=== PATIENT | female | born 1995 | race Caucasian/White ===

== ENCOUNTER 2017-11-18 23:20 | Inpatient (IN) | payer BC, MEDICAID ==
[2017-11-18] MEDS ORDERED: Sodium Chloride 0.9% 10 ML Syringe FLUSH PRN (23:43)
[2017-11-18] MEDS ORDERED: Ondansetron 4 MG Tab.DIS PO PRN (23:43)
[2017-11-18] MEDS ORDERED: Acetaminophen 325 MG Tab PO PRN (23:43)
[2017-11-18] MEDS ORDERED: fentaNYL 100 MCG/2 ML SDV IVPUSH PRN (23:43)
[2017-11-18] MEDS ORDERED: OXYTOCIN IV SCH (23:45)
[2017-11-18] MEDS ORDERED: SODIUM CHLORIDE IV SCH (23:45)
[2017-11-18] MEDS ORDERED: Lactated Ringers 1,000 ML IV ONE (23:46)
[2017-11-18] MEDS ORDERED: ePHEDrine 50 MG/ML SDV IVPUSH ONE (23:46)
--- NOTE | 2017-11-18 23:54 | PCM.LDHP ---
L&D History of Present Illness - General Date of Service: 11/18/17 (active labor) Admit Problem/Dx: Patient Status Order with Admit Dx/Problem 11/18/17 23:44 Patient Status [ADT] Routine Admission Diagnosis/Problem Admission Diagnosis/Problem Source of Information: Patient History Limitations: Reports: No Limitations - History of Present Illness Introduction:: This 22 yr old who is 39 1/7 presented in active labor. CE 90/0 GBS neg ABO O pos, HIV neg Timing/Duration: Reports: minutes: (2) Location, : Reports: Lower back (2) Quality: Reports: Pressure (2) Severity: Moderate Improves with: Reports: None Worsens with: Reports: None - Related Data Allergies/Adverse Reactions: Allergies Allergy/AdvReac Type Severity Reaction Status Date / Time prochlorperazine Allergy Anaphylactic Verified 02/05/16 02:59 [From Compazine] Shock Home Medications: Home Meds Vit W-Ca,Fe,FA(<1 mg) [ Vitamins] 1 tab PO DAILY 02/05/16 [ History] Past Medical History Genitourinary History: Reports: Other (See Below) Other Genitourinary History: surgery on L ureter tube [employer] History: Reports: : 3 Para: 2 LMP (Approximate): (CASS 11/25/17) - Past Surgical History Other Female Surgeries/Procedures: pyeloplasty 2008 and 12 years ago; cystoscopy 2013 Social & Family History - Caffeine Use Caffeine Use: Reports: Soda H&P Review of Systems - Review of Systems: Review Of Systems: See Below General: Reports: No Symptoms HEENT: Reports: No Symptoms Pulmonary: Reports: No Symptoms Cardiovascular: Reports: No Symptoms Gastrointestinal: Reports: No Symptoms Genitourinary: Reports: No Symptoms Musculoskeletal: Reports: No Symptoms Skin: Reports: No Symptoms Psychiatric: Reports: No Symptoms Neurological: Reports: No Symptoms Hematologic/Lymphatic: Reports: No Symptoms Immunologic: Reports: No Symptoms L&D Exam - Exam Exam: See Below - OB Specific Contraction Intensity: Moderate to Strong Movement: Active Heart Tones: Present Heart Rate (FHR) Variability: Moderate (6-25 bmp) Presentation: Vertex Estimated Weight: 7 pounds - Abarca Score Abarca Score Cervix Position: Midposition Abarca Score Consistency: Soft Abarca Score Effacement: >80% Abarca Score Dilation: > 5 cm Abarca Score Infant's Station: -1 ,0 Abarca Score Total: 11 - Exam General: Alert, Oriented HEENT: PERRLA, Mucosa Moist & [place], Pupils Equal Neck: Supple Lungs: Clear to Auscultation, Normal Respiratory Effort Cardiovascular: Regular Rate, Regular Rhythm GI/Abdominal Exam: Normal Bowel Sounds, Soft, Non-Tender Rectal Exam: Normal Exam Genitourinary: Cervical dilitation, Cervical fluid, Enlarged uterus Back Exam: Normal Inspection Extremities: Normal Inspection, No Pedal Edema Skin: Warm, Dry Neurological: Cranial Nerves Intact Psychiatric: Alert, Normal Affect, Normal Mood - Problem List (1) SNOMED Code(s): 21080441 ICD Code: Z34.90 - ENCNTR FOR SUPRVSN OF NORMAL , UNSP, UNSP TRIMESTER Status: Acute Current Visit: Yes Qualifiers: Weeks of gestation: 39 weeks Qualified Code(s): Z3A.39 - 39 weeks gestation of (2) Active labor at term SNOMED Code(s): 05909924 ICD Code: [id number] - Status: Acute Current Visit: Yes Problem List Initiated/Reviewed/Updated: Yes Orders Last 24hrs: Active Orders 24 hr Category Date Time Status Patient Status [ADT] Routine ADT 11/18/17 23:44 Ordered Antiembolic Devices [RC] .Routine Care 11/18/17 23:45 Ordered Bedrest Bathroom Privileges [RC] ASDIRECTED Care 11/18/17 23:43 Ordered Communication Order [RC] ASDIRECTED Care 11/18/17 23:44 Ordered Heart Tones [RC] PER UNIT ROUTINE Care 11/18/17 23:44 Ordered Insert Urinary Catheter [OM.PC] ASDIRECTED Care 11/18/17 23:46 Ordered Local Anesthetic Infusion Pump [RC] ASDIRECTED Care 11/18/17 23:46 Ordered May Shower [RC] ASDIRECTED Care 11/18/17 23:43 Ordered Notify Provider Vital Signs [RC] PRN Care 11/18/17 23:43 Ordered Notify Provider [RC] PRN Care 11/18/17 23:44 Ordered OB Check [OM.PC] Click to Edit Care 11/18/17 23:26 Ordered PCEA Epidural [RC] ASDIRECTED Care 11/18/17 23:46 Ordered PCEA Epidural [RC] ASDIRECTED Care 11/18/17 23:46 Ordered Up ad Raysa [RC] ASDIRECTED Care 11/18/17 23:43 Ordered Urinary Catheter Assessment [RC] ASDIRECTED Care 11/18/17 23:46 Ordered VTE/DVT Education [RC] Click to Edit Care 11/18/17 23:45 Ordered Vital Signs [RC] PER UNIT ROUTINE Care 11/18/17 23:44 Ordered Regular Diet [DIET] Diet 11/19/17 Breakfast Ordered CBC WITH AUTO DIFF [HEME] Routine Lab 11/18/17 23:32 Ordered UA W/MICROSCOPIC [URIN] Routine Lab 11/18/17 23:27 Ordered Acetaminophen [Tylenol] Med 11/18/17 23:43 Ordered 650 mg PO Q4H PRN Lactated Ringers [Ringers, Lactated] 1,000 ml Med 11/18/17 23:46 Ordered IV .BOLUS Ondansetron [Zofran ODT] Med 11/18/17 23:43 Ordered 4 mg PO Q4H PRN Oxytocin/Normal Saline [Pitocin in NS 20 Units/1,000 ML Med 11/18/17 23:45 Ordered ] 1,000 ml IV TITRATE Sodium Chloride 0.9% [Saline Flush] Med 11/18/17 23:43 Ordered 10 ml FLUSH ASDIRECTED PRN ePHEDrine [ePHEDrine Sulfate] Med 11/18/17 23:46 Once 5 mg IVPUSH ONETIME ONE fentaNYL [Sublimaze] Med 11/18/17 23:43 Ordered 100 mcg IVPUSH Q1H PRN DVT/VTE Prophylaxis Reflex [OM.PC] Routine Oth 11/18/17 23:43 Ordered Epidural Catheter Management [OM.PC] Urgent Oth 11/18/17 23:46 Ordered Saline Lock Insert [OM.PC] Routine Oth 11/18/17 23:44 Ordered Resuscitation Status Routine Resus Stat 11/18/17 23:43 Ordered Medication Orders Acetaminophen (Tylenol) 650 mg PO Q4H PRN PRN Reason: Pain (Mild 1-3) and fever Ephedrine Sulfate (Ephedrine Sulfate) 5 mg IVPUSH ONETIME ONE Stop: 11/18/17 23:47 Fentanyl (Sublimaze) 100 mcg IVPUSH Q1H PRN PRN Reason: Pain (moderate 4-6) Lactated Ringer's (Ringers, Lactated) 1,000 mls @ 999 mls/hr IV .BOLUS ONE Stop: 11/19/17 00:46 Oxytocin/Sodium Chloride (Pitocin In Ns 20 Units/1,000 Ml) 1,000 mls @ 6 mls/ hr IV TITRATE JEREMY; Protocol Ondansetron HCl (Zofran Odt) 4 mg PO Q4H PRN PRN Reason: Nausea/Vomiting Sodium Chloride (Saline Flush) 10 ml FLUSH ASDIRECTED PRN PRN Reason: Keep Vein Open Assessment/Plan Comment:: 11/18/17 22 yr old 39 05/25 active labor AROM clear fluid Anticipate a vaginal delivery
[2017-11-19] MEDS ORDERED: Ropivacaine HCl/PF 200 ML ONE (00:21)
[2017-11-19] MEDS ORDERED: Lanolin 100% Cream 40 GM Tube TOP PRN (01:17)
--- NOTE | 2017-11-19 01:19 | ANES ---
DATE OF SERVICE: 11/19/2017 LABOR EPIDURAL NOTE INDICATIONS: Miladis is a 22-year-old female patient that I was called for to do a labor epidural. This is Miladis's 3rd baby. Has had epidurals in the past. The risks and benefits reviewed with the patient and . The patient understands the risks and benefits and wishes to proceed with labor epidural today. Brief history and physical was obtained prior to the epidural. Normal . No abnormal bleeding issues. Platelet count was approximately 170. DESCRIPTION OF PROCEDURE: Miladis was then sat at the edge of the bed. Betadine prep to the lumbar region was done. Sterile drape was placed. 1% lidocaine skin wheal and deep was done. A 17-gauge Tuohy needle was inserted at approximately the L3-4 spot. Loss of resistance was achieved at approximately 4 cm. Negative CSF, negative paresthesia, and negative heme were noted at that time. Catheter was then easily placed. Tuohy needle was withdrawn. Catheter was pulled back to approximately 10 cm and secured at 10 cm. A 3 mL test dose was done. The patient was then laid supine with slight left uterine displacement. Several minutes after the test dose, the patient showed no signs of local anesthetic toxicity or intravascular injection of local or subarachnoid injection of local. I then proceeded to give 12 mL of 0.2% ropivacaine via the epidural. I then started her on a 0.2% ropivacaine drip at 12 mL an hour. The patient was having some relief prior to me leaving the room. Vital signs were stable. Please refer to the nurse's notes for the vital signs. The patient will be monitored closely. Mark Das CRNA /[id number]
[2017-11-19] MEDS ORDERED: Ibuprofen 200 MG Tab, 24 Tab Bulk Bottle PO PRN (01:21)
[2017-11-19] MEDS ORDERED: Acetaminophen 325 MG Tab, 50 Tab Bulk Bottle PO PRN ×2 (01:21→08:14)
--- NOTE | 2017-11-19 01:29 | PCM.DEL ---
L & D Note - General Info Date of Service: 11/19/17 (Delivery) Mother's Due Date: 11/25/17 - Delivery Note Labor: Spontaneous Delivery Outcome: Livebirth Infant Delivery Method: Spontaneous Vaginal Delivery-Single Infant Delivery Mode: Spontaneous Presentation: Vertex Nuchal Cord: None Anesthesia Type: Epidural Amniotic Fluid Description: Clear Episiotomy Type: None Laceration: None Placenta: Intact, Spontaneous Cord: 3 Vessels Estimated Blood Loss: 200 Resuscitation Needed: No [place]: Bulb Syringe, Stimulated, Warmed, [place] Used Provider: Alda Rashid Score 1 min: 8 Score 5 min: 9 Score 10 min: 9 Second Stage Interventions: Reports: Second Nurse Reviewed Heart Tones, Encouragement Given, Pushing Effectively, Pushing, Pulls Own Legs Back Delivery Comments (Free Text/Narrative):: 11/19/17 This 22 year old G3 now P3 who is 39 1/7 weeks gestation delivered via a viable female infant over an intact perineum at 0051 in MILI position. She was placed on mother's abdomen where she was dried and stimulated. She cried spontaneously. She was bulb suctioned. Apgars 8,9,9, all for color. Three vessel cord. The placenta was expressed spontaneously intact. No lacerations of the cervix, vagina, rectum or perineum. EBL 200 cc weight 7-5 Mother and baby to post and nursery in stable condition. - General Info Date of Service: 11/19/17 Admission Dx/Problem (Free Text): Patient Status Order with Admit Dx/Problem 11/18/17 23:44 Patient Status [ADT] Routine Admission Diagnosis/Problem Admission Diagnosis/Problem Functional Status: Reports: Pain Controlled - Review of Systems General: Reports: No Symptoms HEENT: Reports: No Symptoms Pulmonary: Reports: No Symptoms Cardiovascular: Reports: No Symptoms Gastrointestinal: Reports: No Symptoms Genitourinary: Reports: No Symptoms Musculoskeletal: Reports: No Symptoms Skin: Reports: No Symptoms Neurological: Reports: No Symptoms Psychiatric: Reports: No Symptoms - Patient Data Lab Results Last 24 Hours: Laboratory Results - last 24 hr 11/18/17 Range/Units 23:32 WBC 10.0 (4.5-11.0) K/uL RBC 4.06 (3.30-5.50) M/uL Hgb 12.5 (12.0-15.0) g/dL Hct 37.2 (36.0-48.0) % MCV 92 (80-98) fL MCH 31 (27-31) pg MCHC 34 (32-36) % Plt Count 179 (150-400) K/uL Neut % (Auto) 66 (36-66) % Lymph % (Auto) 24 (24-44) % [place] % (Auto) 10 H (2-6) % Eos % (Auto) 1 L (2-4) % Baso % (Auto) 0 (0-1) % Med Orders - Current: Current Medications Acetaminophen (Tylenol) 650 mg PO Q4H PRN PRN Reason: Pain (Mild 1-3) and fever Acetaminophen (Tylenol Bulk Bottle) 325 mg PO Q4H PRN PRN Reason: Pain Emollient Ointment (Lansinoh Hpa) 1 gm TOP ASDIRECTED PRN PRN Reason: Sore Nipples Fentanyl (Sublimaze) 100 mcg IVPUSH Q1H PRN PRN Reason: Pain (moderate 4-6) Oxytocin/Sodium Chloride (Pitocin In Ns 20 Units/1,000 Ml) 30 unit in 1,500 mls @ 6 mls/hr IV TITRATE JEREMY; Protocol Ibuprofen (Motrin Bulk Bottle) 600 mg PO Q6H PRN PRN Reason: Pain Ondansetron HCl (Zofran Odt) 4 mg PO Q4H PRN PRN Reason: Nausea/Vomiting Sodium Chloride (Saline Flush) 10 ml FLUSH ASDIRECTED PRN PRN Reason: Keep Vein Open Discontinued Medications Ephedrine Sulfate (Ephedrine Sulfate) 5 mg IVPUSH ONETIME ONE Stop: 11/18/17 23:47 Lactated Ringer's (Ringers, Lactated) 1,000 mls @ 999 mls/hr IV .BOLUS ONE Stop: 11/19/17 00:46 Last Admin: 11/18/17 23:45 Dose: 999 mls/hr Ropivacaine (Naropin 0.2%) Confirm Administered Dose 200 mls @ as directed .ROUTE .STK-MED ONE Stop: 11/19/17 00:22 - Exam General: Alert, Oriented HEENT: Pupils Equal, Pupils Reactive Neck: Supple Lungs: Clear to Auscultation, Normal Respiratory Effort Cardiovascular: Regular Rate, Regular Rhythm GI/Abdominal Exam: Soft (Female) Exam: Cervical Dilatation, Enlarged Uterus, Vaginal Bleeding Back Exam: Normal Inspection Extremities: Normal Inspection, Normal Range of Motion, Non-Tender, No Pedal Edema, Normal Capillary Refill Skin: Warm, Dry, Intact Neurological: No New Focal Deficit Psy/Mental Status: Alert, Normal Affect, Normal Mood - Problem List & Annotations (1) SNOMED Code(s): 40321561 Code(s): Z34.90 - ENCNTR FOR SUPRVSN OF NORMAL , UNSP, UNSP TRIMESTER Status: Acute Current Visit: Yes Qualifiers: Weeks of gestation: 39 weeks Qualified Code(s): Z3A.39 - 39 weeks gestation of (2) Active labor at term SNOMED Code(s): 98944891 Code(s): JSS6994 - Status: Acute Current Visit: Yes (3) Normal spontaneous vaginal delivery SNOMED Code(s): 21419628 Code(s): O80 - ENCOUNTER FOR FULL-TERM UNCOMPLICATED DELIVERY Status: Acute Current Visit: Yes - Problem List Review Problem List Initiated/Reviewed/Updated: Yes - My Orders Last 24 Hours: My Active Orders 11/18/17 23:26 OB Check [OM.PC] Click to Edit 11/18/17 23:27 UA W/MICROSCOPIC [URIN] Routine 11/18/17 23:43 Bedrest Bathroom Privileges [RC] ASDIRECTED May Shower [RC] ASDIRECTED Notify Provider Vital Signs [RC] PRN Up ad Raysa [RC] ASDIRECTED Acetaminophen [Tylenol] 650 mg PO Q4H PRN Ondansetron [Zofran ODT] 4 mg PO Q4H PRN Sodium Chloride 0.9% [Saline Flush] 10 ml FLUSH ASDIRECTED PRN fentaNYL [Sublimaze] 100 mcg IVPUSH Q1H PRN DVT/VTE Prophylaxis Reflex [OM.PC] Routine Resuscitation Status Routine 11/18/17 23:44 Communication Order [RC] ASDIRECTED Heart Tones [RC] PER UNIT ROUTINE Notify Provider [RC] PRN Vital Signs [RC] PER UNIT ROUTINE Saline Lock Insert [OM.PC] Routine 11/18/17 23:45 Antiembolic Devices [RC] .Routine VTE/DVT Education [RC] Click to Edit Oxytocin/Normal Saline [Pitocin in NS 20 Units/1,000 ML] 30 unit in 1,500 ml IV TITRATE 11/18/17 23:46 Insert Urinary Catheter [OM.PC] ASDIRECTED Local Anesthetic Infusion Pump [RC] ASDIRECTED PCEA Epidural [RC] ASDIRECTED PCEA Epidural [RC] ASDIRECTED Urinary Catheter Assessment [RC] ASDIRECTED Epidural Catheter Management [OM.PC] Urgent 11/19/17 01:17 Lanolin [Lansinoh HPA] 1 gm TOP ASDIRECTED PRN Assess Lochia [WOMSER] Per Unit Routine Assess Uterine Involution [WOMSER] Per Unit Routine 11/19/17 01:18 Patient Status [ADT] Routine Vital Signs [RC] PFP 11/19/17 01:19 Ice Therapy [OM.PC] Per Unit Routine Perineal Care [OM.PC] Per Unit Routine Peripheral IV Discontinue [OM.PC] Routine 11/19/17 01:21 Acetaminophen [Tylenol Bulk Bottle] 325 mg PO Q4H PRN Ibuprofen [Motrin Bulk Bottle] 600 mg PO Q6H PRN 11/19/17 05:11 CBC W/O DIFF,HEMOGRAM [HEME] AM 11/19/17 Breakfast Regular Diet [DIET] - Assessment Assessment:: 11/19/17 22 year old without complications GBS neg ABo O pos Rubella immune HIV neg - Plan Plan:: 11/18/17 22 yr old 39 1 active labor AROM clear fluid Anticipate a vaginal delivery 11/19/17 Routine cares support 24-48 hour stay.
--- NOTE | 2017-11-19 11:30 | PCM.PNPP ---
- General Info Date of Service: 11/19/17 Admission Dx/Problem (Free Text): Patient Status Order with Admit Dx/Problem 11/18/17 23:44 Patient Status [ADT] Routine Admission Diagnosis/Problem Admission Diagnosis/Problem Functional Status: Reports: Pain Controlled - Review of Systems General: Reports: No Symptoms HEENT: Reports: No Symptoms Pulmonary: Reports: No Symptoms Cardiovascular: Reports: No Symptoms Gastrointestinal: Reports: No Symptoms Genitourinary: Reports: No Symptoms Musculoskeletal: Reports: No Symptoms Skin: Reports: No Symptoms Neurological: Reports: No Symptoms Psychiatric: Reports: No Symptoms - General Info Date of Service: 11/19/17 - Patient Data Vital Signs - Most Recent: Last Vital Signs Temp 98.2 F 11/19/17 08:55 Pulse 76 11/19/17 08:39 Resp 16 11/19/17 08:39 BP 100/53 L 11/19/17 08:39 Pulse Ox 99 11/19/17 08:39 Weight - Most Recent: 124 lb I&O - Last 24 Hours: Intake & Output 11/18/17 11/19/17 11/19/17 22:59 06:59 14:59 Intake Total 1999 420 Balance 1999 420 Lab Results - Last 24 Hours: Laboratory Results - last 24 hr 11/18/17 11/19/17 Range/Units 23:32 05:44 WBC 10.0 18.0 H (4.5-11.0) K/uL RBC 4.06 3.77 (3.30-5.50) M/uL Hgb 12.5 11.6 L (12.0-15.0) g/dL Hct 37.2 34.7 L (36.0-48.0) % MCV 92 92 (80-98) fL MCH 31 31 (27-31) pg MCHC 34 33 (32-36) % Plt Count 179 174 (150-400) K/uL Neut % (Auto) 66 (36-66) % Lymph % (Auto) 24 (24-44) % [place] % (Auto) 10 H (2-6) % Eos % (Auto) 1 L (2-4) % Baso % (Auto) 0 (0-1) % Med Orders - Current: Current Medications Acetaminophen (Tylenol Bulk Bottle) 325 - 650 mg PO Q4H PRN PRN Reason: Pain Emollient Ointment (Lansinoh Hpa) 1 gm TOP ASDIRECTED PRN PRN Reason: Sore Nipples Last Admin: 11/19/17 06:25 Dose: 1 applic Oxytocin/Sodium Chloride (Pitocin In Ns 20 Units/1,000 Ml) 30 unit in 1,500 mls @ 6 mls/hr IV TITRATE JEREMY; Protocol Last Admin: 11/19/17 00:51 Dose: 2 munits/min, 999 mls/hr Ibuprofen (Motrin Bulk Bottle) 600 mg PO Q6H PRN PRN Reason: Pain Last Admin: 11/19/17 06:25 Dose: 1 bottle Ondansetron HCl (Zofran Odt) 4 mg PO Q4H PRN PRN Reason: Nausea/Vomiting Sodium Chloride (Saline Flush) 10 ml FLUSH ASDIRECTED PRN PRN Reason: Keep Vein Open Discontinued Medications Acetaminophen (Tylenol Bulk Bottle) 325 mg PO Q4H PRN PRN Reason: Pain Last Admin: 11/19/17 06:24 Dose: 1 bottle Ephedrine Sulfate (Ephedrine Sulfate) 5 mg IVPUSH ONETIME ONE Stop: 11/18/17 23:47 Last Admin: 11/19/17 02:09 Dose: Not Given Fentanyl (Sublimaze) 100 mcg IVPUSH Q1H PRN PRN Reason: Pain (moderate 4-6) Lactated Ringer's (Ringers, Lactated) 1,000 mls @ 999 mls/hr IV .BOLUS ONE Stop: 11/19/17 00:46 Last Admin: 11/18/17 23:45 Dose: 999 mls/hr Ropivacaine (Naropin 0.2%) Confirm Administered Dose 200 mls @ as directed .ROUTE .STK-MED ONE Stop: 11/19/17 00:22 - Interaction Disposition, : [place] in Room with Family Interaction: Holding Infant Infant Feeding: Breastfed ; Nursed Well Support Person: - Recovery Exam Fundal Tone: Firm Fundal Level: At Umbilicus Fundal Placement: Midline Lochia Amount: Moderate Lochia Color: Rubra/Red Perineum Description: Intact, Minimal Bruising/Swelling Episiotomy/Laceration: None Urinary Elimination: Voided - Exam General: Alert, Oriented HEENT: Pupils Equal Neck: Supple Lungs: Clear to Auscultation, Normal Respiratory Effort Cardiovascular: Regular Rate, Regular Rhythm GI/Abdominal Exam: Normal Bowel Sounds, Soft, Non-Tender, No Organomegaly, No Distention, No Abnormal Bruit, No Mass, Pelvis Stable Extremities: Normal Inspection, Normal Range of Motion, Non-Tender, No Pedal Edema, Normal Capillary Refill Skin: Warm, Dry, Intact Wound/Incisions: Healing Well Neurological: No New Focal Deficit Psy/Mental Status: Alert, Normal Affect, Normal Mood - Problem List & Annotations (1) SNOMED Code(s): 28947466 Code(s): Z34.90 - ENCNTR FOR SUPRVSN OF NORMAL , UNSP, UNSP TRIMESTER Status: Acute Current Visit: Yes Qualifiers: Weeks of gestation: 39 weeks Qualified Code(s): Z3A.39 - 39 weeks gestation of (2) Active labor at term SNOMED Code(s): 02142149 Code(s): UAH7749 - Status: Acute Current Visit: Yes (3) Normal spontaneous vaginal delivery SNOMED Code(s): 98902589 Code(s): O80 - ENCOUNTER FOR FULL-TERM UNCOMPLICATED DELIVERY Status: Acute Current Visit: Yes - Problem List Review Problem List Initiated/Reviewed/Updated: Yes - My Orders Last 24 Hours: My Active Orders 11/18/17 23:26 OB Check [OM.PC] Click to Edit 11/18/17 23:43 Bedrest Bathroom Privileges [RC] ASDIRECTED May Shower [RC] ASDIRECTED Notify Provider Vital Signs [RC] PRN Up ad Raysa [RC] ASDIRECTED Ondansetron [Zofran ODT] 4 mg PO Q4H PRN Sodium Chloride 0.9% [Saline Flush] 10 ml FLUSH ASDIRECTED PRN DVT/VTE Prophylaxis Reflex [OM.PC] Routine Resuscitation Status Routine 11/18/17 23:44 Communication Order [RC] ASDIRECTED Notify Provider [RC] PRN Saline Lock Insert [OM.PC] Routine 11/18/17 23:45 Antiembolic Devices [RC] .Routine VTE/DVT Education [RC] Click to Edit Oxytocin/Normal Saline [Pitocin in NS 20 Units/1,000 ML] 30 unit in 1,500 ml IV TITRATE 11/18/17 23:46 Insert Urinary Catheter [OM.PC] ASDIRECTED Epidural Catheter Management [OM.PC] Urgent 11/19/17 01:17 Lanolin [Lansinoh HPA] 1 gm TOP ASDIRECTED PRN Assess Lochia [WOMSER] Per Unit Routine Assess Uterine Involution [WOMSER] Per Unit Routine 11/19/17 01:18 Patient Status [ADT] Routine Vital Signs [RC] PFP 11/19/17 01:19 Ice Therapy [OM.PC] Per Unit Routine Perineal Care [OM.PC] Per Unit Routine Peripheral IV Discontinue [OM.PC] Routine 11/19/17 01:21 Ibuprofen [Motrin Bulk Bottle] 600 mg PO Q6H PRN 11/19/17 08:14 Acetaminophen [Tylenol Bulk Bottle] 325 - 650 mg PO Q4H PRN 11/19/17 Breakfast Regular Diet [DIET] - Assessment Assessment:: 11/19/17 22 year old without complications GBS neg ABo O pos Rubella immune HIV neg 11/19/17 Happy this morning, did sleep some Flow light and some cramping without problems, baby latches well Is pleased with delivery. HGB 11.6 this morning - Plan Plan:: 11/18/17 22 yr old 39 1/7 active labor AROM clear fluid Anticipate a vaginal delivery 11/19/17 Routine cares support 24-48 hour stay. 11/19/17 Discharge tomorrow
[2017-11-20 07:19] VITALS: BP 101/59
--- NOTE | 2017-11-20 08:03 | PCM.PNPP ---
- General Info Date of Service: 11/20/17 (PPD 1 D/C) Admission Dx/Problem (Free Text): Patient Status Order with Admit Dx/Problem 11/18/17 23:44 Patient Status [ADT] Routine Admission Diagnosis/Problem Admission Diagnosis/Problem Functional Status: Reports: Pain Controlled - Review of Systems General: Reports: No Symptoms HEENT: Reports: No Symptoms Pulmonary: Reports: No Symptoms Cardiovascular: Reports: No Symptoms Gastrointestinal: Reports: No Symptoms Genitourinary: Reports: No Symptoms Musculoskeletal: Reports: No Symptoms Skin: Reports: No Symptoms Neurological: Reports: No Symptoms Psychiatric: Reports: No Symptoms - General Info Date of Service: 11/20/17 - Patient Data Vital Signs - Most Recent: Last Vital Signs Temp 97.2 F 11/20/17 07:15 Pulse 62 11/20/17 07:15 Resp 18 11/20/17 07:15 BP 101/59 L 11/20/17 07:15 Pulse Ox 97 11/20/17 07:15 Weight - Most Recent: 124 lb I&O - Last 24 Hours: Intake & Output 11/19/17 11/20/17 11/20/17 22:59 06:59 14:59 Intake Total 1240 Balance 1240 Med Orders - Current: Current Medications Acetaminophen (Tylenol Bulk Bottle) 325 - 650 mg PO Q4H PRN PRN Reason: Pain Emollient Ointment (Lansinoh Hpa) 1 gm TOP ASDIRECTED PRN PRN Reason: Sore Nipples Last Admin: 11/19/17 06:25 Dose: 1 applic Oxytocin/Sodium Chloride (Pitocin In Ns 20 Units/1,000 Ml) 30 unit in 1,500 mls @ 6 mls/hr IV TITRATE JEREMY; Protocol Last Admin: 11/19/17 00:51 Dose: 2 munits/min, 999 mls/hr Ibuprofen (Motrin Bulk Bottle) 600 mg PO Q6H PRN PRN Reason: Pain Last Admin: 11/19/17 06:25 Dose: 1 bottle Ondansetron HCl (Zofran Odt) 4 mg PO Q4H PRN PRN Reason: Nausea/Vomiting Sodium Chloride (Saline Flush) 10 ml FLUSH ASDIRECTED PRN PRN Reason: Keep Vein Open Discontinued Medications Acetaminophen (Tylenol Bulk Bottle) 325 mg PO Q4H PRN PRN Reason: Pain Last Admin: 11/19/17 06:24 Dose: 1 bottle Ephedrine Sulfate (Ephedrine Sulfate) 5 mg IVPUSH ONETIME ONE Stop: 11/18/17 23:47 Last Admin: 11/19/17 02:09 Dose: Not Given Fentanyl (Sublimaze) 100 mcg IVPUSH Q1H PRN PRN Reason: Pain (moderate 4-6) Lactated Ringer's (Ringers, Lactated) 1,000 mls @ 999 mls/hr IV .BOLUS ONE Stop: 11/19/17 00:46 Last Admin: 11/18/17 23:45 Dose: 999 mls/hr Ropivacaine (Naropin 0.2%) Confirm Administered Dose 200 mls @ as directed .ROUTE .STK-MED ONE Stop: 11/19/17 00:22 - Interaction Disposition, : [place] in Room with Family Infant Interaction: Holding Infant Feeding: Breastfed ; Nursed Well Support Person: - Recovery Exam Fundal Tone: Firm Fundal Level: 2 Fingerbreadths Below Umbilicus Fundal Placement: Midline Lochia Amount: Small, Moderate Lochia Color: Rubra/Red Perineum Description: Intact, Minimal Bruising/Swelling Episiotomy/Laceration: None Bladder Status: Voiding Urinary Elimination: Voided - Exam General: Alert, Oriented HEENT: Pupils Equal Neck: Supple Lungs: Clear to Auscultation, Normal Respiratory Effort Cardiovascular: Regular Rate, Regular Rhythm GI/Abdominal Exam: Normal Bowel Sounds, Soft, Non-Tender, No Organomegaly, No Distention, No Abnormal Bruit, No Mass, Pelvis Stable Extremities: Normal Inspection, Normal Range of Motion, Non-Tender, No Pedal Edema, Normal Capillary Refill Skin: Warm, Dry, Intact Wound/Incisions: Healing Well Neurological: No New Focal Deficit Psy/Mental Status: Alert, Normal Affect, Normal Mood - Problem List & Annotations (1) SNOMED Code(s): 07975890 Code(s): Z34.90 - ENCNTR FOR SUPRVSN OF NORMAL , UNSP, UNSP TRIMESTER Status: Acute Current Visit: Yes Qualifiers: Weeks of gestation: 39 weeks Qualified Code(s): Z3A.39 - 39 weeks gestation of (2) Active labor at term SNOMED Code(s): 40407071 Code(s): PDO9326 - Status: Acute Current Visit: Yes (3) Normal spontaneous vaginal delivery SNOMED Code(s): 94624073 Code(s): O80 - ENCOUNTER FOR FULL-TERM UNCOMPLICATED DELIVERY Status: Acute Current Visit: Yes - Problem List Review Problem List Initiated/Reviewed/Updated: Yes - My Orders Last 24 Hours: My Active Orders 11/19/17 08:14 Acetaminophen [Tylenol Bulk Bottle] 325 - 650 mg PO Q4H PRN 11/19/17 Breakfast Regular Diet [DIET] - Assessment Assessment:: 11/19/17 22 year old without complications GBS neg ABo O pos Rubella immune HIV neg 11/19/17 Happy this morning, did sleep some Flow light and some cramping without problems, baby latches well Is pleased with delivery. HGB 11.6 this morning 11/20/17 Ready to go home No problems and feeling well - Plan Plan:: 11/18/17 22 yr old 39 1 active labor AROM clear fluid Anticipate a vaginal delivery 11/19/17 Routine cares support 24-48 hour stay. 11/19/17 Discharge tomorrow 11/20/17 Home today See me 6 weeks for a post visit
== END 2017-11-20 10:00 | disposition home or self-care (01) | DRG 560 ==
LOC: JP.OBCHECK 23:20 → JP.OB 23:40 → OBSVTOIN 11-19 00:51 → JP.MS 11-19 01:00
PROVIDERS: ADMIT Nurse Practitioner Family; ATTEND Nurse Practitioner Family
PROC: 10E0XZZ Delivery of Products of Conception, External Approach (ICD-10-PCS; principal; 2017-11-19)
PROC: 3E0S3GC Introduction of Other Therapeutic Substance into Epidural Space, Percutaneous Approach (ICD-10-PCS; 2017-11-19)
PROC: 10907ZC Drainage of Amniotic Fluid, Therapeutic from Products of Conception, Via Natural or Artificial Opening (ICD-10-PCS; 2017-11-19)
DX: O80 Encounter for full-term uncomplicated delivery (principal); Z3A.39 39 weeks gestation of pregnancy; Z37.0 Single live birth
CPT/HCPCS: 36415; 59409; 85025; 85027; 99211; A9270-GY; J2590; J2795; J7120

== ENCOUNTER 2021-06-20 22:19 | Inpatient (IN) | payer BC ==
[~2021-06-20 22:19] MED LIST: Lidocaine 1% 50 ML MDV INJECT ONE
[2021-06-20] MEDS ORDERED: Sodium Chloride 0.9% 10 ML Syringe FLUSH PRN ×2 (22:51→22:56)
[2021-06-20] MEDS ORDERED: Tranexamic Acid 1,000 MG in Sodium Chloride 0.9% 50 ML IV PRN (22:53)
[2021-06-20] MEDS ORDERED: Oxytocin 10 Units/1 ML SDV IM ONE (22:53)
[2021-06-20] MEDS ORDERED: diphenhydrAMINE 50 MG/ML SDV IVPUSH PRN ×2 (22:56)
[2021-06-20] MEDS ORDERED: ePHEDrine 50 MG/ML SDV IVPUSH PRN (22:56)
[2021-06-20] MEDS ORDERED: Naloxone 0.4 MG/ML SDV IVPUSH PRN (22:56)
[2021-06-20] MEDS ORDERED: Lactated Ringers 1,000 ML IV ONE (22:57)
[2021-06-20] MEDS ORDERED: Lactated Ringers 1,000 ML IV SCH (23:00)
[2021-06-20] MEDS ORDERED: Ropivacaine 200 MG in Premix Bag 1 BAG EPIDUR SCH (23:00)
[2021-06-20 23:41] LABS: CORONAVIRUS COVID-19 NAA NEGATIVE (NEGATIVE)
[2021-06-21] MEDS ORDERED: Ropivacaine 100 ML ONE (00:21)
[2021-06-21] MEDS ORDERED: Oxytocin 10 Units/1 ML SDV IV ONE (01:00)
[2021-06-21] MEDS ORDERED: Lidocaine 1% 50 ML MDV ONE (02:16)
[2021-06-21] MEDS ORDERED: Lanolin 100% Cream 40 GM Tube TOP PRN (02:25)
[2021-06-21] MEDS ORDERED: Docusate Sodium 100 MG Cap PO PRN (02:25)
[2021-06-21] MEDS: Ibuprofen 800 MG Tab PO PRN ×3 (05:12→18:02)
[2021-06-21] MEDS ORDERED: Witch Hazel Medicated Pads 100/Jar TOP PRN (06:30)
[2021-06-21] MEDS: Acetaminophen 325 MG Tab PO PRN ×3 (06:32→20:00)
[2021-06-21] MEDS ORDERED: Benzocaine 20% Top Spray 56 GM Bottle TOP PRN (06:33)
[2021-06-21] MEDS ORDERED: Benzocaine 20% Top Spray 56 GM Bottle TOP SCH (06:45)
[2021-06-22] MEDS: Ibuprofen 800 MG Tab PO PRN ×2 (02:41→09:39)
[2021-06-22] MEDS: Acetaminophen 325 MG Tab PO PRN ×3 (06:21→14:52)
[2021-06-22 11:30] VITALS: BP 93/55; PULSE 88
[2021-06-22] MEDS ORDERED: Acetaminophen 325 MG Tab, 50 Tab Bulk Bottle PO PRN (15:38)
[2021-06-22] MEDS ORDERED: Ibuprofen 200 MG Tab, 24 Tab Bulk Bottle PO PRN (15:39)
== END 2021-06-22 16:05 | disposition home or self-care (01) | DRG 560 ==
LOC: JP.OBCHECK 22:19 → JP.OB 22:24 → JP.OBCHECK 22:51 → OBSVTOIN 22:51 → JP.OB 22:51 → JP.MS 06-21 06:47
PROVIDERS: ADMIT Obstetrics & Gynecology; ATTEND Obstetrics & Gynecology
PROC: 10E0XZZ Delivery of Products of Conception, External Approach (ICD-10-PCS; principal; 2021-06-20)
PROC: 10907ZC Drainage of Amniotic Fluid, Therapeutic from Products of Conception, Via Natural or Artificial Opening (ICD-10-PCS; 2021-06-20)
PROC: 3E0R3BZ Introduction of Anesthetic Agent into Spinal Canal, Percutaneous Approach (ICD-10-PCS; 2021-06-20)
PROC: 00HU33Z Insertion of Infusion Device into Spinal Canal, Percutaneous Approach (ICD-10-PCS; 2021-06-20)
PROC: 4A1HXCZ Monitoring of Products of Conception, Cardiac Rate, External Approach (ICD-10-PCS; 2021-06-20)
DX: O70.1 Second degree perineal laceration during delivery (principal); Z3A.39 39 weeks gestation of pregnancy; Z37.0 Single live birth; Z20.822 Contact with and (suspected) exposure to COVID-19
CPT/HCPCS: 0241U; 36415; 51701; 80305-QW; 81001; 85027; 86850; 86900; 86901; 99211; A9270-GY; J2001; J2590; J2795; J7120

== ENCOUNTER 2024-04-01 10:30 | Emergency (ER) | payer BC ==
[2024-04-01 11:26] LABS: BASOPHILS ABSOLUTE AUTO 0.03 K/uL (0.00-0.10); BASOPHILS PERCENT AUTO 0.2 % (0.1-1.3); HEMATOCRIT 39.1 % (34.3-46.0); HEMOGLOBIN 13.7 g/dL (11.2-15.5); IMMATURE GRAN ABSOLUTE AUTO 0.05 K/uL (0.00-0.23); IMMATURE GRAN PERCENT AUTO 0.3 % (0.0-0.7); LYMPHOCYTES ABSOLUTE AUTO 0.43 K/uL (0.8-3.3); LYMPHOCYTES PERCENT AUTO 2.8 % (11.4-47.7); MEAN CORPUSCULAR HEMOGLOBIN 30.6 pg (31.6-35.5); MEAN CORPUSCULAR VOLUME 87.3 fL (81.4-99.0); MONOCYTES ABSOLUTE AUTO 0.62 K/uL (0.20-0.90); NEUTROPHILS ABSOLUTE AUTO 14.28 K/uL (1.0-7.6); NEUTROPHILS PERCENT AUTO 92.7 % (40.0-78.1); PLATELET COUNT,PLT 235 K/uL (130-375); RED BLOOD CELL COUNT 4.48 M/uL (3.77-5.24); WHITE BLOOD CELL COUNT,WBC 15.4 K/uL (3.2-11.0)
[2024-04-01] MEDS: Ondansetron 4 MG/2 ML SDV IVPUSH SCH (11:40)
[2024-04-01] MEDS: HYDROmorphone 0.5 MG/0.5 ML Syringe IVPUSH ONE (11:41)
[2024-04-01] MEDS: Sodium Chloride 0.9% 10 ML Syringe FLUSH ONE (11:41)
[2024-04-01] MEDS: Sodium Chloride 0.9% 500 ML IV SCH (11:43)
[2024-04-01 11:46] LABS: A/G RATIO 1.3 (1.2-2.2); ALANINE AMINOTRANSFERASE,ALT 23 U/L (12-78); ALBUMIN 4.5 g/dL (3.4-5.0); ALKALINE PHOSPHATASE 58 U/L (46-116); ANION GAP 17.5 mmol/L (5.0-14.0); ASPARTATE AMNIOTRANSFERASE,AST 18 U/L (15-37); BILIRUBIN TOTAL 0.7 mg/dL (0.2-1.0); BLOOD UREA NITROGEN,BUN 12 mg/dL (7-18); CALCIUM 9.4 mg/dL (8.5-10.1); CARBON DIOXIDE,CO2 23 mmol/L (21-32); CHLORIDE,CL 103 mmol/L (100-108); CREATININE 0.8 mg/dL (0.6-1.0); EST CRCL DRUG DOSING (CG) 76.89 mL/min; ESTIMATED GFR 101 mL/min (>60); GLUCOSE RANDOM 153 mg/dL (74-106); POTASSIUM,K 3.5 mmol/L (3.6-5.2); SODIUM,NA 140 mmol/L (140-148)
[2024-04-01 12:10] LABS: HEMOGLOBIN A1C 5.2 % (4.5-6.2)
[2024-04-01] MEDS: Sodium Chloride 0.9% 60 ML IV SCH (12:12)
[2024-04-01] MEDS: Iopamidol 612 MG/ML 100 ML Bottle IV SCH (12:12)
[2024-04-01 12:43] LABS: APPEARANCE,URINE CLEAR (CLEAR); BILIRUBIN,URINE NEGATIVE (NEGATIVE); COLOR,URINE YELLOW (YELLOW); GLUCOSE,URINE NEGATIVE (NEGATIVE); KETONES,URINE TRACE mg/dL (NEGATIVE); LEUKOCYTE ESTERASE,URINE TRACE (NEGATIVE); NITRITE,URINE NEGATIVE (NEGATIVE); OCCULT BLOOD,URINE NEGATIVE (NEGATIVE); PH,URINE 8.5 (5.0-8.0); PROTEIN,URINE NEGATIVE (NEGATIVE); UROBILINOGEN,URINE 0.2 EU/dL (0.2-1.0)
[2024-04-01 12:47] LABS: AMORPHOUS SEDIMENT,URINE NOT SEEN; BACTERIA,URINE FEW; EPITHELIAL CELLS,URINE FEW; MUCUS,URINE FEW; RBC,URINE 0-5 (0-5); WBC,URINE 0-5 (0-5)
[2024-04-01 13:43] VITALS: BP 96/58; PULSE 99
== END 2024-04-01 13:46 | disposition home or self-care (01) ==
LOC: JP.ED 10:30
DX: K52.9 Noninfective gastroenteritis and colitis, unspecified (principal); R11.2 Nausea with vomiting, unspecified; Z88.8 Allergy status to other drugs, medicaments and biological substances; Z79.899 Other long term (current) drug therapy
CPT/HCPCS: 36415; 74177; 80053; 81001; 81025; 83036; 83690; 85025; 87086; 96361; 96374; 96375; 99284; J1171; J2405; J3490; J7030; Q9967